=== PATIENT | male | born 1965 | race Caucasian/White ===

== ENCOUNTER 2021-09-25 09:50 | Emergency (ER) | payer OTHER ==
[~2021-09-25] VITALS: Ht 175.3 cm; Wt 80.0 kg
[2021-09-25 09:52] VITALS: BP 148/102
== END 2021-09-25 15:13 | disposition home or self-care (01) ==
LOC: ER 09:50
DX: S76.911A Strain of unspecified muscles, fascia and tendons at thigh level, right thigh, initial encounter (principal); F17.200 Nicotine dependence, unspecified, uncomplicated; F12.90 Cannabis use, unspecified, uncomplicated; Z56.0 Unemployment, unspecified; X58.XXXA Exposure to other specified factors, initial encounter; Y93.89 Activity, other specified; Y92.89 Other specified places as the place of occurrence of the external cause; Y99.8 Other external cause status
CPT/HCPCS: 93971; 99284

== ENCOUNTER 2022-11-06 15:21 | Emergency (ER) | payer MEDICAID ==
[~2022-11-06] VITALS: Ht 175.3 cm; Wt 86.2 kg
[2022-11-06 15:38] VITALS: BP 147/93; PULSE 103; RESP 16; TEMP 98.5; O2SAT 94
[2022-11-06] MEDS ORDERED: HYDROcodone/acetaminophen 5mg/325mg tablet PO ONE (16:35)
[2022-11-06] MEDS ORDERED: IBUP-1984 PO (20:15)
[2022-11-06] MEDS ORDERED: OXYC-145 PO (20:15)
== END 2022-11-06 20:21 | disposition home or self-care (01) ==
LOC: ER 15:22
DX: S43.202A Unspecified subluxation of left sternoclavicular joint, initial encounter (principal); R07.89 Other chest pain; Z79.899 Other long term (current) drug therapy; X58.XXXA Exposure to other specified factors, initial encounter; Y93.89 Activity, other specified; Y92.89 Other specified places as the place of occurrence of the external cause; Y99.8 Other external cause status
CPT/HCPCS: 71120; 71250; 99284

== ENCOUNTER 2023-02-02 21:55 | Emergency (ER) | payer MEDICAID, OTHER ==
[~2023-02-02] VITALS: Ht 175.3 cm; Wt 77.3 kg
[~2023-02-02 21:55] MED LIST: OXYC-145 PO
[2023-02-02 21:56] VITALS: BP 154/83; PULSE 99; RESP 16; TEMP 97.9; O2SAT 95
[2023-02-02] MEDS ORDERED: HYDROcodone/acetaminophen 5mg/325mg tablet PO ONE (22:35)
[2023-02-02] MEDS ORDERED: HYDR-3965 PO (22:46)
[2023-02-02] MEDS ORDERED: IBUP-1984 PO (22:46)
== END 2023-02-02 23:28 | disposition home or self-care (01) ==
LOC: ER 21:56
DX: T25.221A Burn of second degree of right foot, initial encounter (principal); T25.222A Burn of second degree of left foot, initial encounter; F12.90 Cannabis use, unspecified, uncomplicated; Z79.899 Other long term (current) drug therapy; X10.2XXA Contact with fats and cooking oils, initial encounter; Y93.89 Activity, other specified; Y92.89 Other specified places as the place of occurrence of the external cause; Y99.8 Other external cause status
CPT/HCPCS: 99283; A6446

== ENCOUNTER 2024-10-14 12:45 | Emergency (ER) | payer MEDICAID ==
[~2024-10-14] VITALS: Ht 175.3 cm; Wt 68.5 kg
[2024-10-14 12:46] VITALS: BP 139/101; PULSE 105; RESP 16; O2SAT 94
--- NOTE | 2024-10-14 13:22 | RADIOLOGY REPORT ---
EXAM: DI CHEST,SINGLE VIEW HISTORY: chest wall pain COMPARISON: For reasons unknown, CT scan of the chest dated 11/06/2022 was not made available on the PACS system for viewing. TECHNIQUE: PA upright view of the chest was performed. FINDINGS: There is left basilar opacity with blunting of the left costophrenic angle. There is mild right lung base scarring and/or atelectasis. No pneumothorax or pulmonary edema. The heart is borderline enlarge d. The aortic arch is calcific. There is moderate thoracic degenerative disc disease. There is sligh t lower thoracic dextroscoliosis. IMPRESSION: 1. Left basilar infiltrate and/or effusion. Recommend comparison with CT scan of the chest dated 10/24 to assess if this is a chronic finding. In the absence of comparison imaging, noncontrast CT scan of the chest could be performed for better characterization. 2. Mild right lung base atelectasis and/or scarring.
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
[2024-10-14] MEDS: ibuprofen tablet 400 MG TABLET PO STA (14:49)
--- NOTE | 2024-10-14 14:57 | RADIOLOGY REPORT ---
Procedure: CT CT CHEST Study Date and Requested Time: 10/14/2024 01:58 P M History: infiltrate. comparison CT Comparison: CT chest 11/06/2022 chest radiograph 10/14/2024 Dose: CTDI: 16.91 mGy DLP: 565.91 mGycm Technique: Multiplanar images obtained through the chest without contrast Findings: The thyroid gland is unremarkable. Heart size is within normal limits with trace pericardial effusion. No evidence of aortic aneurysm. Pulmonary trunk is normal in size. Subcentimeter mediastinal lymph nodes measuring up to 0.9 cm in short axis which may be reactive. No pneumothorax. Moderate to severe upper lobe predominant emphysematous changes of bilateral lungs. Right lower lobe atelectasis. Small left-sided pleural effusion with associated left lower lobe conso lidation. Partial view of the upper abdomen is unremarkable. There is acute mildly displaced fractures of left anterior ribs 4 and 5 with acute fracture of left a nterolateral ribs 6. There is associated adjacent edema over the chest wall musculature with foci of air within the adjacent chest wall musculature and subcutaneous fat. There is also acute mildly displaced fractures of left posterior rib 5 Impression: Acute mildly displaced fracture of left posterior rib 5 with acute left anterior rib 4 and 5 fracture s and left anterolateral ribs 6 fracture. There is associated soft tissue edema with Foci of air of t he left anterolateral chest wall adjacent to the rib fractures. Small left-sided pleural effusion with bibasilar opacities which may represent atelectasis. Left basi lar contusion can not be excluded.
[2024-10-14] MEDS ORDERED: IBUP-1986 PO (15:28)
[2024-10-14] MEDS ORDERED: HYDR-3973 PO (15:28)
[2024-10-14] MEDS ORDERED: ACET-1025 PO (15:28)
[2024-10-14 15:53] VITALS: TEMP 97.2
== END 2024-10-14 15:54 | disposition home or self-care (01) ==
LOC: ER 12:45
DX: S22.32XA Fracture of one rib, left side, initial encounter for closed fracture (principal); V13.4XXA Pedal cycle driver injured in collision with car, pick-up truck or van in traffic accident, initial encounter; Y93.55 Activity, bike riding; Y92.89 Other specified places as the place of occurrence of the external cause; Y99.8 Other external cause status
CPT/HCPCS: 71045; 71250; 99284

== ENCOUNTER 2024-10-22 08:46 | Emergency (ER) | payer MEDICAID ==
[~2024-10-22] VITALS: Ht 152.4 cm; Wt 87.0 kg
[~2024-10-22 08:46] MED LIST changes: +ACET-1025 PO; +HYDR-3973 PO; +IBUP-1986 PO
[2024-10-22 08:50] VITALS: BP 145/98; PULSE 89; RESP 16; O2SAT 96
--- NOTE | 2024-10-22 09:13 | RADIOLOGY REPORT ---
CHEST RADIOGRAPH Indication: CP Technique: Single frontal view of the chest was obtained COMPARISON: CT CT CHEST on DOS: 10/14/24, DI CHEST,SINGLE VIEW on DOS: 10/14/24 FINDINGS: Lines and Tubes: None Lungs: Bibasilar subsegmental atelectasis. Pleura: No effusion. No pneumothorax. Cardiomediastinal contours: Unremarkable Bones: Unremarkable IMPRESSION: Bibasilar subsegmental atelectasis.
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
--- NOTE | 2024-10-22 10:22 | ELECTROCARDIOGRAPH REPORT ---
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 Elvis Silvestre Measurements Intervals Ideal Rate: 81 P: 43 IA: 164 QRS: -32 QRSD: 90 T: 131 QT: 352 QTc: 409 Interpretive Statements Sinus rhythm Probable left atrial enlargement Left axis deviation Nonspecific T abnrm, anterolateral leads Electronically Signed On 10-24-2024 19:27:[address] Elvis Silvestre Please click the below link to view image of tracing.
== END 2024-10-22 10:32 | disposition home or self-care (01) ==
LOC: ER 08:47
DX: S29.011A Strain of muscle and tendon of front wall of thorax, initial encounter (principal); X58.XXXA Exposure to other specified factors, initial encounter; Y93.89 Activity, other specified; Y92.89 Other specified places as the place of occurrence of the external cause; Y99.8 Other external cause status
CPT/HCPCS: 71045; 93005; 99283

== ENCOUNTER 2025-03-06 11:57 | Emergency (ER) | payer SELFPAY ==
[~2025-03-06] VITALS: Ht 175.3 cm; Wt 83.8 kg
[~2025-03-06 11:57] MED LIST changes: -ACET-1025 PO; -HYDR-3973 PO
[2025-03-06 12:05] VITALS: TEMP 98.1
[2025-03-06 12:57] LABS: MEAN PLATELET VOLUME 7.7 FL (7.4-10.4); RED CELL DISTRIBUTION WIDTH 14.1 % (11.5-14.5)
--- NOTE | 2025-03-06 13:06 | RADIOLOGY REPORT ---
CHEST RADIOGRAPH INDICATION: Cough TECHNIQUE: Single frontal view of the chest was obtained COMPARISON: DI CHEST,SINGLE VIEW on DOS: 10/22/24, DI CHEST,SINGLE VIEW on DOS: 10/14/24 FINDINGS: Lines and Tubes: None Lungs: No focal consolidation.Bilateral lower lung linear densities. Pleura: No effusion. No pneumothorax. Cardiomediastinal contours: Unremarkable Bones: No acute osseous abnormality. IMPRESSION: Bilateral lower lung zone linear atelectasis. Otherwise, no acute cardiopulmonary disease.
[2025-03-06 13:15] LABS: CREATININE 1.48 MG/DL (0.60-1.10); TOTAL CARBON DIOXIDE 25.9 MMOL/L (24-32); eCRCL 53 ML/MIN; eGFR 48 ML/MIN
[2025-03-06 13:49] LABS: LEUKOCYTE ESTERASE ,URINE NEGATIVE (Neg); NITRITES, URINE POSITIVE (Neg); OCCULT BLOOD,URINE TRACE-INTACT (Neg)
[2025-03-06 13:57] LABS: UA COLLECTION TYPE NON-SPECIFIED
[2025-03-06 13:58] LABS: HYALINE CASTS 0-3 /LPF (NEGATIVE); MUCUS STRANDS FEW /LPF (Neg); SQUAMOUS EPITHELIAL CELL,UR FEW /LPF (FEW)
[2025-03-06 14:02] LABS: INFLUENZA TYPE A ANTIGEN RAPID NEGATIVE (Negative); INFLUENZA TYPE B ANTIGEN RAPID NEGATIVE (Negative)
[2025-03-06 14:16] LABS: STREP A SCREEN NEGATIVE (Neg)
[2025-03-06] MEDS: CefTRIAXone 1000mg IM Kit (w/lidocaine diluent) IM ONE (14:29)
--- NOTE | 2025-03-06 14:36 | Physician Documentation ---
History of Present Illness ~ Chief Complaint: Cold, cough & congestion Stated Complaint: COUGH Time Seen by MD: 13:21 Primary Medical Doctor: NO PMD HPI Patient is a very pleasant 59-year-old male that presents to the emergency department for evaluation of cough congestion chest tightness generally feeling unwell for the last several days. Patient reports that he does not have any significant past medical history he has no cardiac history is not diabetic he has no high blood pressure. Reports a cough has been productive nasal congestion. Patient denies fever chills nausea vomiting diarrhea chest pain chest discomfort radiating chest pain or any other symptoms at this time. Medication Reconciliation Allergies: Coded Allergies: No Known Allergies (Unverified , 03/06/25) Scheduled Ibuprofen (Ibuprofen), 1 TAB PO Q8H Scheduled PRN Oxycodone HCl/Acetaminophen (Percocet 5-325 mg Tablet), 1 TAB PO TID PRN PRN for pain Past Medical History Past Medical History: *ENT* Past Surgical History: orthopedic surgeries Alcohol Use: None Drug Use: marijuana Lives with: Other Lives In: Home Occupation: unemployed Review of Systems ROS As stated above in the HPI, otherwise all systems are reviewed and negative. Physical Exam Vital Signs: Temperature: 98.1, Source: Temporal, Heart Rate: 60, Respiratory Rate: 16, BP: 120/83, Pulse Oximetry: 98, Weight: 83.800 Oxygen Flow Rate: 0 Progress Results/Orders Results/Orders Orders - MARCELA BAGLEY THIOKOL OPERATOR Chest,Single View (03/06/25 12:31) Covid19 Binax Poc Result Entry (03/06/25 12:31) Cult Urine + [address] [employer] [address] (03/06/25 13:58) Cult Throat + R/O Beta Strep (03/06/25 14:16) Completed Orders - MARCELA BAGLEY THIOKOL OPERATOR Cbc/Diff (03/06/25 12:31) CMP (03/06/25 12:31) Chest,Single View (03/06/25 12:31) Influenza Type A&B Rapid Test (03/06/25 12:31) Strep A Rapid (03/06/25 12:31) Ua W/Microscopic, Cult If Ind (03/06/25 13:40) Ceftriaxone Im Kit W/Lidocaine (Rocephin (03/06/25 14:20) Vital Signs 03/06/25 03/06/25 12:05 13:31 Temp 98.1 Pulse 60 Resp 20 16 B/P (MAP) 120/83 Pulse Ox 98 O2 Flow Rate 0 Laboratory Tests Test 03/06/25 12:50 03/06/25 13:40 03/06/25 13:41 White Blood Count 16.2 H Red Blood Count 5.50 Hemoglobin 16.2 Hematocrit 47.6 Mean Corpuscular Volume 86.4 Mean Corpuscular Hemoglobin 29.4 Mean Corpuscular Hemoglobin Concent 34.0 Red Cell Distribution Width 14.1 Platelet Count 378 Mean Platelet Volume 7.7 Neutrophils (%) (Auto) 82.8 H Lymphocytes (%) (Auto) 7.4 L Monocytes (%) (Auto) 9.4 Eosinophils (%) (Auto) 0.1 Basophils (%) (Auto) 0.3 Neutrophils # (Auto) 13.4 H Lymphocytes # (Auto) 1.2 Monocytes # (Auto) 1.5 H Eosinophils # (Auto) 0.0 Basophils # (Auto) 0.0 CBC Comment Sodium Level 136 Potassium Level 4.4 Chloride Level 102 Carbon Dioxide Level 25.9 Anion Gap 8 Blood Urea Nitrogen 24 H Creatinine 1.48 H Estimated GFR/1.73 m2 48 BUN/Creatinine Ratio 16.2 Glucose Level 117 H Calcium Level 9.4 Total Bilirubin 1.0 Aspartate Amino Transf (AST/SGOT) 16 Alanine Aminotransferase (ALT/SGPT) 12 Alkaline Phosphatase 100 Total Protein 8.5 H Albumin 3.1 L Globulin 5.4 H Albumin/Globulin Ratio 0.6 L Chemistry Comments Urine Specimen Description Non-specified Urine Color [place] Urine Clarity Clear Urine pH 6.0 Urine Specific [place] 1.020 Urine Protein 30 H Urine Glucose (UA) Negative Urine Ketones Trace H Urine Occult Blood Trace-intact Urine Nitrite Positive H Urine Bilirubin Small Urine Urobilinogen 4.0 H Urine Leukocyte Esterase Negative Urine RBC 10-20 Urine WBC 5-10 H Urine Squamous Epithelial Cells Few Urine Bacteria 2+ Urine Hyaline Casts 0-3 Urine Mucus Few Urine Culture Indicated Indicated Volume Urine Centrifuged 10 ml Urine Comment Influenza Type A Antigen Negative Influenza Type B Antigen Negative Group A Streptococcus Rapid Negative Medical Decision Making Additional information obtaine: other Findings Assessment and Plan: This is a 59-year-old male presenting with several days of productive cough, nasal congestion, chest tightness, and malaise. Clinical presentation includes leukocytosis (WBC 16,000/?L) and chest X-ray findings of bilateral basilar atelectasis. The constellation of acute respiratory symptoms, leukocytosis, and radiographic findings is consistent with community-acquired pneumonia (CAP). Disposition: The patient is clinically stable with normal vital signs and no evidence of severe pneumonia requiring hospitalization. The patient does not meet criteria for admission based on disease severity assessment. Outpatient management is appropriate. Treatment Plan: The patient has no reported comorbidities (no chronic heart, lung, liver, or renal disease; no diabetes mellitus; no hypertension) and no rec ent antibiotic use. According to the [place] [employer] and Infectious [employer] of [place] guidelines, first-line empiric therapy for healthy outpatients without comorbidities includes amoxicillin 1 g three times daily or doxycycline 100 mg twice daily. The patient will be prescribed amoxicillin 1 gram orally three times daily for treatment of community-acquired pneumonia. Alternative therapy with doxycycline 100 mg twice daily would be appropriate if the patient has a penicillin allergy or intolerance. Macrolide monotherapy is not recommended as first-line therapy given pneumococcal macrolide resistance exceeds 30% in the [place]. Duration: A typical course of 5 days is recommended for uncomplicated CAP in outpatients who demonstrate clinical improvement. Follow-up: The patient should follow up with primary care within 5-7 days to assess clinical response to therapy. The patient should return to the emergency department or seek immediate medical attention for worsening symptoms, including fever, increased dyspnea, chest pain, hemoptysis, or inability to tolerate oral intake. Patient Education: The patient was counseled on the importance of medication adherence, adequate hydration, and rest. The patient was advised that symptoms typically improve within 48-72 hours of initiating antibiotics, though complete resolution may take several weeks. Differential Dx:Considerations: Include: Allergic rhinitis, Influenza, Otitis media, Peritonsillar abscess, Pharyngitis-Diphtheria, Pharyngitis-Streptoccal, Pharyngitis-Viral, Pneumonia, Pnuemonitis, Sinusitis, URI, Other Departure Disposition: 01 HOME / SELF CARE / HOMELESS Impression: Primary Impression: Acute respiratory infection Additional Impression: Pneumonia Discharge Instructions: Community-Acquired Pneumonia, Adult, Cough, Adult, Upper Respiratory Infection, Adult Additional Instructions: Your Diagnosis You were diagnosed with community-acquired pneumonia, which is an infection in your lungs. This is why you have been experiencing cough, congestion, chest tightness, and feeling unwell. Your Medications You received antibiotics in the emergency department and have been prescribed the following medications to take at home: Amoxicillin-clavulanate (Augmentin): Take as prescribed to treat the pneumonia. Complete the full course of antibiotics even if you start feeling better. Doxycycline: Take as prescribed to treat the pneumonia. Complete the full course of antibiotics even if you start feeling better. Albuterol inhaler: Use as needed for chest tightness or difficulty breathing. This medication helps open your airways and makes breathing easier. Important: You should take your antibiotics for at least 5 days. Your doctor will check that you are improving before stopping the antibiotics. Signs of improvement include normal temperature, normal heart rate and breath ing rate, ability to eat normally, and clear thinking. What to Expect Your symptoms should start improving within 2 to 3 days of starting antibiotics. Complete recovery may take several weeks. It is normal to feel tired during recovery. Get plenty of rest. Drink plenty of fluids to stay hydrated. Your cough may last for a few weeks even after the infection clears. Follow-Up Care Schedule an appointment with your primary care doctor within 5 to 7 days. Your doctor will check that you are recovering properly and may adjust your treatment if needed. When to Return to the Emergency Department Come back to the emergency department or call 911 if you experience any of the following: Worsening shortness of breath or difficulty breathing High fever (temperature above 100.4F or 38C) that does not improve with medication Chest pain, especially if it is severe or getting worse Coughing up blood Confusion or difficulty thinking clearly Inability to eat or drink or keep down your medications Feeling much worse instead of better after starting antibiotics Any other symptoms that concern you Additional Instructions Avoid smoking and secondhand smoke, as this can slow your recovery. Wash your hands frequently to prevent spreading infection to others. Cover your mouth when coughing to protect those around you. Ask your doctor about getting vaccinated against pneumonia and flu to prevent future infections. If you have questions about your medications or recovery, contact your primary care doctor's office. Referrals: NO PRIMARY CARE PROVIDER (PCP) Prescriptions albuterol inhaler (Pro-Air Inhaler) 8.5 Gm Inhaler 1-2 PUFFS PO Q4H PRN for shortness of breath, #1 INH Prov: MARCELA BAGLEY THIOKOL OPERATOR 03/06/25 Doxycycline Hyclate (Doxycycline Hyclate) 100 Mg Capsule 1 CAP PO Q12H for 10 Days, #20 CAP Prov: MARCELA BAGLEY 03/06/25 Amox Tr/Potassium Clavulanate (Augmentin 875-125 Tablet) 1 Each Tablet 1 TAB PO Q12H for 10 Days, #20 TAB Prov: MARCELA BAGLEY 03/06/25 Education Educated: Patient Educated regarding: diagnosis, treatment, need for follow up Signature Scribe Signature: A Attestation: Scribed for Marcela Bagley by GERMAN Pablo . 03/06/25 14:41 MARCELA BAGLEY Mar 06, 2025 14:36
[2025-03-06] MEDS ORDERED: ALBU8HFA PO (14:40)
[2025-03-06] MEDS ORDERED: DOXY-1 PO (14:40)
[2025-03-06] MEDS ORDERED: AMOX-117 PO (14:40)
[2025-03-06 14:49] VITALS: BP 125/89; PULSE 62; RESP 20; O2SAT 98
== END 2025-03-06 14:53 | disposition home or self-care (01) ==
LOC: ER 11:58
DX: J22 Unspecified acute lower respiratory infection (principal); J18.9 Pneumonia, unspecified organism; Z20.822 Contact with and (suspected) exposure to COVID-19; Z79.899 Other long term (current) drug therapy
CPT/HCPCS: 36415; 71045; 80053; 81001; 85025; 87081; 87088; 87804; 87811; 87880; 96372; 99284; J0696